=== PATIENT | female | born 1980 | race Caucasian/White ===

== ENCOUNTER 2021-08-27 07:16 | Emergency (ER) | payer MEDICAID, OTHER ==
[~2021-08-27] VITALS: Ht 172.7 cm; Wt 78.0 kg
[2021-08-27] MEDS ORDERED: MORPHINE SULFATE 4 MG/ML CPJ (NOT FOR IM USE) IV ONE (10:15)
[2021-08-27 10:37] LABS: BASOPHILS % 0.2 % (0.0-2.0); EOSINOPHILS % 0.3 % (0.0-5.0); HEMATOCRIT. 37.2 % (36.0-48.0); HEMOGLOBIN. 12.5 g/dL (12.0-16.0); LYMPHOCYTES % 9.2 % (20.0-50.0); MEAN CORPUSCULAR HEMOGLOBIN 28.8 pg (28.0-32.0); MEAN PLATELET VOLUME 10.6 fl (7.4-10.4); NEUTROPHILS % 87.3 % (40.0-76.0); PLATELET 188 x1000/uL (130-400); RED BLOOD CELL COUNT 4.32 mill/uL (4.2-5.4); RED CELL DISTRIBUTION WIDTH 13.5 % (11.6-14.6)
[2021-08-27 10:38] LABS: CHLORIDE 106 mEq/L (98-107)
[2021-08-27 11:01] LABS: B-HCG QUANTITATIVE < 1 mIU/mL (<3)
[2021-08-27 11:03] LABS: CLARITY URINE CLEAR (CLEAR); COLOR URINE YELLOW (YELLOW); KETONES URINE NEGATIVE (NEGATIVE); LEUKOCYTE ESTERASE URINE 3+ (NEGATIVE); NITRITE URINE NEGATIVE (NEGATIVE); OCCULT BLOOD URINE 2+ (NEGATIVE); PROTEIN URINE NEGATIVE (NEGATIVE); SPECIFIC GRAVITY URINE 1.009 (1.005-1.030); UROBILINOGEN URINE 0.2 E.U./dL (0.2-1.0)
[2021-08-27 12:45] VITALS: BP 118/66
[2021-08-27] MEDS ORDERED: IBUP-2028 MT (13:18)
[2021-08-27] MEDS ORDERED: NITR-87 MT (13:18)
== END 2021-08-27 14:30 | disposition home or self-care (01) ==
LOC: ER 07:31
DX: R10.9 Unspecified abdominal pain (principal); I10 Essential (primary) hypertension
CPT/HCPCS: 36415; 74176; 76830; 76856; 80053; 81003; 83690; 84702; 85025; 87077; 87086; 87186; 93005; 96374; 99285; J2270